=== PATIENT | male | born 1965 | race African-American/Black ===

== ENCOUNTER 2017-10-08 20:02 | Observation (INO) ==
[2017-10-08 21:23] LABS: Bilirubin,Urine Negative (Negative); Blood,Urine Small (Negative); Clarity,Urine Clear (Clear); Color,Urine Yellow (Yellow); Glucose,Urine (UA) Normal (Normal); Ketones,Urine 40 mg/dL (Negative); Leukocyte Esterase,Urine Negative (Negative); Nitrite,Urine Negative (Negative); PH,Urine 6.5 pH Units (5.0-8.0); Protein,Urine Negative (Neg-Trace); Specific Gravity,Urine 1.025 (1.010-1.025); Urobilinogen,Urine Normal (Normal)
[2017-10-08 21:30] LABS: Basophils % 0.2 %; Eosinophils % 0.1 %; Hemoglobin 15.4 g/dL (12.9-16.9); Immature Granulocytes % 0.4 % (0-4); Lymphocytes % 8.3 %; Mean Corpuscular Hemoglobin 32.4 pg (28.0-33.3); Mean Corpuscular Volume 92.6 fL (83.0-100.0); Mean Platelet Volume 8.6 fL (9.4-12.4); Monocytes # 0.6 K/mcL (0.0-1.3); Monocytes % 4.8 %; Neutrophils # 10.7 K/mcL (1.6-8.9); Platelet Count 217 K/mcL (140-400); Red Blood Count 4.75 M/mcL (4.19-5.50); Red Cell Distribution Width 12.8 % (11.5-14.5); Segmented Neutrophils % 86.2 %
[2017-10-08 21:35] LABS: WBC,Urine 0-3 per hpf (0-3)
[2017-10-08 21:36] LABS: Bacteria,Urine Few per hpf (None-Few); Hyaline Casts,Urine None Seen per lpf (None-Few); Squamous Epithelial Cell,Urine Few per lpf (None-Few)
[2017-10-08 21:47] LABS: Alanine Aminotransferase 32 Units/L (7-52); Albumin 4.4 g/dL (3.5-5.7); Alkaline Phosphatase 68 Units/L (34-104); Aspartate Amino Transferase 25 Units/L (13-39); BUN/Creatinine Ratio 16 (6-26); Bilirubin,Direct 0.2 mg/dL (0.0-0.2); Bilirubin,Indirect 0.8 mg/dL (0.0-1.2); Blood Urea Nitrogen 15 mg/dL (6-20); Calcium 9.1 mg/dL (8.6-10.3); Carbon Dioxide 28 mEq/L (23-29); Chloride 102 mEq/L (98-107); Globulin 2.2 g/dL (2.4-3.5); Glucose 110 mg/dL (70-105); Lipase 30 Units/L (11-82); Osmolality,Calculated 283 (280-300); Potassium 4.2 mEq/L (3.5-5.1); Sodium 136 mEq/L (136-145); Total Protein 6.6 g/dL (6.4-8.9); eGFR For African Americans > 60 (> 60); eGFR For Non-African Americans > 60 (> 60)
[2017-10-08] MEDS ORDERED: 0.9 % Sodium Chloride 1,000 ML IVC ONE (22:39)
--- NOTE | 2017-10-08 23:01 | Emergency Department Note ---
Disposition Clinical Impression: Acute appendicitis Qualifiers: Acute appendicitis type: unspecified acute appendicitis type Qualified Code(s) : K35.80 - Unspecified acute appendicitis Disposition: Admitted As Inpatient Condition: Fair Abdominal Pain HPI - General Chief Complaint: ED Abdominal Pain Stated Complaint: abdominal pain Time Seen by Provider: 10/08/17 22:07 Source: patient Mode of arrival: private vehicle Limitations: no limitations Nursing Notes Reviewed: Yes Vital Signs Reviewed: Yes - History of Present Illness HPI Narrative: 51-year-old male with a history of hypertension presents to the emergency department for evaluation of abdominal pain since 6 AM this morning. Patient states abdominal pain is around the umbilicus and right side and can be described as sharp and all as well as cramping at times. Patient states the pain is hard to explain visits a little mixture of everything. Patient states nothing makes the pain better, nothing has made the pain worse. This pain is constant with intermittent worsening. Patient denies recent illness, fever, chills, shortness of breath, dyspnea, chest pain, palpitations, edema, nausea, vomiting, cough patient, diarrhea. He states he had 2 large bowel movements today and this did not assist with the pain. Bowel movements were of normal texture but were larger amount. He states he typically goes every other day. He denies issues with urination, blood in urine, prostate issues. 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 He has been doing this for about a month. Pt Subjective Complaint: abdominal pain Onset (ago): hour(s) Consistency: constant, intermittent, Worsening Location: periumbilical, RLQ Pain Severity: moderate, severe Pain Scale: 8 Quality: cramping, stabbing, aching, sharp, dull, cannot describe Radiation: RLQ Improves with: nothing Worsens with: nothing Associated symptoms: Reports: denies other symptoms Treatments prior to arrival: none - Related Data Allergies Allergy/AdvReac Type Severity Reaction Status Date / Time lisinopril Allergy Cough Verified 12/06/16 08:21 All systems ED: reviewed and negative except as stated. Review of Systems: As Per HPI Abdominal Pain PMH - Past Medical History Medical history: Reports: hyperlipidemia, hypertension Psychiatric history: Reports: no psych history - Social History Smoking status: Never smoker Alcohol use: Reports: occasionally Drug use: Reports: none Physical Exam - General Limitations: no limitations General appearance: alert, in no apparent distress - Head Head exam: atraumatic, normocephalic, normal inspection - Eye Eye exam: Present: normal appearance, PERRL, EOMI - ENT ENT exam: mucous membranes moist - Neck Neck exam: Present: normal inspection, full ROM, trachea midline - Chest Chest inspection: Present: normal inspection, symmetric chest wall rise - Respiratory Respiratory exam: Present: normal lung sounds bilaterally - Cardiovascular Cardiovascular exam: Present: regular rate, normal rhythm, normal heart sounds - Abdominal Exam Abdominal exam: Present: soft, tenderness, diminished bowel sounds, psoas sign, tenderness at McBurney's Point. Absent: distention, guarding, rebound, rigidity , organomegaly, trauma, incision, mass, bruit, hernia Abdominal tenderness: Present: RLQ - Back Exam Back exam: Present: normal inspection, full ROM. Absent: tenderness, CVA tenderness (R), CVA tenderness (L) - Neurological Exam Neurological exam: Present: alert, oriented X3, CN II-XII intact, normal gait - Psychiatric Psychiatric exam: Present: normal affect, normal mood - Skin Skin exam: Present: warm, dry, intact, normal color Course Course Narrative: Well-appearing, hydrated male in no apparent distress. Sitting on side of bed with easy and even respirations. Abdominal exam reveals + tenderness McBurney's point, + Psoas sign. No guarding, rigidity, distention, ascites, hernias palpated. Pain with palpation to the right lower quadrant with pain also at the border the right inguinal area. Concern for appendicitis, inguinal hernia, or other surgical emergency. We will obtain basic labs, CT, and reevaluate. We will treat pain. - Reevaluation(s) Reevaluation #1: CT of the abdomen reveals mild appendicitis. Appendix with a fecalith, 13 mm with fluid surrounding it. Spoke with surgeon Dr. Monroe recommended antibiotics , admission to surgical services for appendectomy in the a.m. Spoke with patient and family verbalized understanding. Admission pending to surgical services. We will continue treatment pain, nausea or patient is here. Time: 01:00 Vital Signs Temperature 99.2 F 10/08/17 20:13 Pulse Rate 67 10/08/17 20:13 Respiratory Rate 18 10/08/17 20:13 Blood Pressure 149/85 10/08/17 20:13 O2 Sat by Pulse Oximetry 96 10/08/17 20:13 Temperature 98.1 F 10/09/17 02:01 Pulse Rate 65 10/09/17 02:01 Respiratory Rate 15 10/09/17 02:01 Blood Pressure 135/82 10/09/17 02:01 O2 Sat by Pulse Oximetry 96 10/09/17 02:01 Oxygen Delivery Oxygen Delivery Room Air Abdominal Pain - Differential Diagnosis Differential Diagnosis: Likely: abdominal pain non-specific, AAA, acute appendicitis, calculus of kidney, colonic obstruction, hernia, small bowel obstruction. Unlikely: abdominal pain mimics ectopic , constipation, ischemic bowel, , pancreatitis - Lab Data Lab results reviewed: Yes I reviewed the patient's lab results. Result diagrams: 10/08/17 21:09 10/08/17 21:09 Lab Results 10/08/17 10/08/17 10/08/17 Range/Units 21:08 21:09 21:09 WBC 12.4 H (4.3-11.1) K/mcL RBC 4.75 (4.19-5.50) M/mcL Hgb 15.4 (12.9-16.9) g/dL Hct 44.0 (37.5-50.1) % MCV 92.6 (83.0-100.0) fL MCH 32.4 (28.0-33.3) pg MCHC 35.0 (31.6-35.5) g/dL RDW 12.8 (11.5-14.5) % Plt Count 217 (140-400) K/mcL MPV 8.6 L (9.4-12.4) fL Immature Gran % 0.4 (0-4) % Seg Neutrophils % 86.2 % Lymphocytes % 8.3 % Monocytes % 4.8 % Eosinophils % 0.1 % Basophils % 0.2 % Neutrophils # 10.7 H (1.6-8.9) K/mcL Lymphocytes # 1.0 (0.6-4.6) K/mcL Monocytes # 0.6 (0.0-1.3) K/mcL Eosinophils # 0.0 (0.0-0.6) K/mcL Basophils # 0.0 (0.0-0.2) K/mcL PT (9.4-12.1) Seconds INR APTT (26.0-36.0) Seconds Sodium 136 (136-145) mEq/L Potassium 4.2 (3.5-5.1) mEq/L Chloride 102 (98-107) mEq/L Carbon Dioxide 28 (23-29) mEq/L BUN 15 (6-20) mg/dL Creatinine 0.91 (0.70-1.30) mg/dL Est GFR ( Amer) > 60 (> 60) Est GFR (Non-Af Amer) > 60 (> 60) BUN/Creatinine Ratio 16 (6-26) Glucose 110 H (70-105) mg/dL Calculated Osmolality 283 (280-300) Lactic Acid (0.5-2.2) mmol/L Calcium 9.1 (8.6-10.3) mg/dL Total Bilirubin 1.0 (0.3-1.0) mg/dL Direct Bilirubin 0.2 (0.0-0.2) mg/dL Indirect Bilirubin 0.8 (0.0-1.2) mg/dL AST 25 (13-39) Units/L ALT 32 (7-52) Units/L Alkaline Phosphatase 68 (34-104) Units/L Serum Total Protein 6.6 (6.4-8.9) g/dL Albumin 4.4 (3.5-5.7) g/dL Globulin 2.2 L (2.4-3.5) g/dL Albumin/Globulin Ratio 2.0 (1.1-2.2) Lipase 30 (11-82) Units/L Urine Color Yellow (Yellow) Urine Clarity Clear (Clear) Urine pH 6.5 (5.0-8.0) pH Units Ur Specific [place] 1.025 (1.010-1.025) Urine Protein Negative (Neg-Trace) mg/dL Urine Glucose (UA) Normal (Normal) mg/dL Urine Ketones 40 H (Negative) mg/dL Urine Blood Small H (Negative) Urine Nitrite Negative (Negative) Urine Bilirubin Negative (Negative) Urine Urobilinogen Normal (Normal) mg/dL Ur Leukocyte Esterase Negative (Negative) Urine Microscopic RBC 5-15 H (0-3) per hpf Urine Microscopic WBC 0-3 (0-3) per hpf Ur Squamous Epith Cells Few (None-Few) per lpf Urine Bacteria Few (None-Few) per hpf Hyaline Casts None Seen (None-Few) per lpf Ur Culture Indicated? NO (NO) 10/08/17 10/08/17 10/08/17 Range/Units 22:58 22:58 22:58 WBC (4.3-11.1) K/mcL RBC (4.19-5.50) M/mcL Hgb (12.9-16.9) g/dL Hct (37.5-50.1) % MCV (83.0-100.0) fL MCH (28.0-33.3) pg MCHC (31.6-35.5) g/dL RDW (11.5-14.5) % Plt Count (140-400) K/mcL MPV (9.4-12.4) fL Immature Gran % (0-4) % Seg Neutrophils % % Lymphocytes % % Monocytes % % Eosinophils % % Basophils % % Neutrophils # (1.6-8.9) K/mcL Lymphocytes # (0.6-4.6) K/mcL Monocytes # (0.0-1.3) K/mcL Eosinophils # (0.0-0.6) K/mcL Basophils # (0.0-0.2) K/mcL PT 10.9 (9.4-12.1) Seconds INR 1.0 APTT 26.6 (26.0-36.0) Seconds Sodium (136-145) mEq/L Potassium (3.5-5.1) mEq/L Chloride (98-107) mEq/L Carbon Dioxide (23-29) mEq/L BUN (6-20) mg/dL Creatinine (0.70-1.30) mg/dL Est GFR ( Amer) (> 60) Est GFR (Non-Af Amer) (> 60) BUN/Creatinine Ratio (6-26) Glucose (70-105) mg/dL Calculated Osmolality (280-300) Lactic Acid 0.8 (0.5-2.2) mmol/L Calcium (8.6-10.3) mg/dL Total Bilirubin (0.3-1.0) mg/dL Direct Bilirubin (0.0-0.2) mg/dL Indirect Bilirubin (0.0-1.2) mg/dL AST (13-39) Units/L ALT (7-52) Units/L Alkaline Phosphatase (34-104) Units/L Serum Total Protein (6.4-8.9) g/dL Albumin (3.5-5.7) g/dL Globulin (2.4-3.5) g/dL Albumin/Globulin Ratio (1.1-2.2) Lipase (11-82) Units/L Urine Color (Yellow) Urine Clarity (Clear) Urine pH (5.0-8.0) pH Units Ur Specific [place] (1.010-1.025) Urine Protein (Neg-Trace) mg/dL Urine Glucose (UA) (Normal) mg/dL Urine Ketones (Negative) mg/dL Urine Blood (Negative) Urine Nitrite (Negative) Urine Bilirubin (Negative) Urine Urobilinogen (Normal) mg/dL Ur Leukocyte Esterase (Negative) Urine Microscopic RBC (0-3) per hpf Urine Microscopic WBC (0-3) per hpf Ur Squamous Epith Cells (None-Few) per lpf Urine Bacteria (None-Few) per hpf Hyaline Casts (None-Few) per lpf Ur Culture Indicated? (NO) - Radiology Data Radiology results reviewed: Yes I reviewed the patient's radiology results. Abdomen/Pelvis CT 10/08/17 22:34 IMPRESSION: Findings most compatible with mild appendicitis. The appendix is dilated to 13 mm with mild wall thickening and trace surrounding fluid. There is also a fecalith at the base of the appendix. Trace additional fluid within the deep pelvis in the rectovesical space. There is otherwise no evidence of rupture, including no free intraperitoneal air or abscess. D/ / 10/08/2017 23:27:17 Yung Meyers MD / naveen Interpreting Provider: Yung Meyers MD
[2017-10-08] MEDS ORDERED: Ketorolac 30 MG/ML VIAL IM ONE (23:02)
[2017-10-08 23:15] LABS: Prothrombin Time 10.9 Seconds (9.4-12.1)
[2017-10-09] MEDS ORDERED: cefOXitin 2,000 MG in D5% in Water (Mini-Bag+) 100 ML IVPB ONE (00:54)
[2017-10-09] MEDS ORDERED: *HR* FentaNYL (PF) 100 MCG/2 ML VIAL IVP ONE (00:56)
[2017-10-09] MEDS ORDERED: WATER IVPB ONE (01:15)
[2017-10-09] MEDS ORDERED: CEFOXITIN IVPB ONE (01:15)
[2017-10-09] MEDS ORDERED: D5 IVPB ONE (01:15)
--- NOTE | 2017-10-09 01:18 | Emergency Department Note ---
Disposition Clinical Impression: Acute appendicitis Qualifiers: Acute appendicitis type: unspecified acute appendicitis type Qualified Code(s) : K35.80 - Unspecified acute appendicitis Disposition: Admitted As Inpatient Condition: Fair General Adult HPI - General Chief complaint: ED Abdominal Pain Stated complaint: abdominal pain Time Seen by Provider: 10/08/17 22:07 Source: patient Mode of arrival: private vehicle Limitations: no limitations Nursing Notes Reviewed: Yes Vital Signs Reviewed: Yes - History of Present Illness Pain Scale: 8 - Related Data Allergies Allergy/AdvReac Type Severity Reaction Status Date / Time lisinopril Allergy Cough Verified 12/06/16 08:21 Past Medical History - Past Medical History Medical history: Reports: hyperlipidemia, hypertension Surgical history: Reports: LE stent(s) Psychiatric history: Reports: no psych history - Social History Smoking Status: Never smoker Smokeless Tobacco Status: No Alcohol use: Reports: occasionally Drug use: Reports: none Physical Exam - General Limitations: no limitations General appearance: alert, in no apparent distress Course Vital Signs Temperature 99.2 F 10/08/17 20:13 Pulse Rate 67 10/08/17 20:13 Respiratory Rate 18 10/08/17 20:13 Blood Pressure 149/85 10/08/17 20:13 O2 Sat by Pulse Oximetry 96 10/08/17 20:13 Temperature 98.1 F 10/09/17 02:01 Pulse Rate 65 10/09/17 02:01 Respiratory Rate 15 10/09/17 02:01 Blood Pressure 135/82 10/09/17 02:01 O2 Sat by Pulse Oximetry 96 10/09/17 02:01 Oxygen Delivery Oxygen Delivery Room Air Medical Decision Making - Lab Data Result diagrams: 10/08/17 21:09 10/08/17 21:09 Lab Results 10/08/17 10/08/17 10/08/17 Range/Units 21:08 21:09 21:09 WBC 12.4 H (4.3-11.1) K/mcL RBC 4.75 (4.19-5.50) M/mcL Hgb 15.4 (12.9-16.9) g/dL Hct 44.0 (37.5-50.1) % MCV 92.6 (83.0-100.0) fL MCH 32.4 (28.0-33.3) pg MCHC 35.0 (31.6-35.5) g/dL RDW 12.8 (11.5-14.5) % Plt Count 217 (140-400) K/mcL MPV 8.6 L (9.4-12.4) fL Immature Gran % 0.4 (0-4) % Seg Neutrophils % 86.2 % Lymphocytes % 8.3 % Monocytes % 4.8 % Eosinophils % 0.1 % Basophils % 0.2 % Neutrophils # 10.7 H (1.6-8.9) K/mcL Lymphocytes # 1.0 (0.6-4.6) K/mcL Monocytes # 0.6 (0.0-1.3) K/mcL Eosinophils # 0.0 (0.0-0.6) K/mcL Basophils # 0.0 (0.0-0.2) K/mcL PT (9.4-12.1) Seconds INR APTT (26.0-36.0) Seconds Sodium 136 (136-145) mEq/L Potassium 4.2 (3.5-5.1) mEq/L Chloride 102 (98-107) mEq/L Carbon Dioxide 28 (23-29) mEq/L BUN 15 (6-20) mg/dL Creatinine 0.91 (0.70-1.30) mg/dL Est GFR ( Amer) > 60 (> 60) Est GFR (Non-Af Amer) > 60 (> 60) BUN/Creatinine Ratio 16 (6-26) Glucose 110 H (70-105) mg/dL Calculated Osmolality 283 (280-300) Lactic Acid (0.5-2.2) mmol/L Calcium 9.1 (8.6-10.3) mg/dL Total Bilirubin 1.0 (0.3-1.0) mg/dL Direct Bilirubin 0.2 (0.0-0.2) mg/dL Indirect Bilirubin 0.8 (0.0-1.2) mg/dL AST 25 (13-39) Units/L ALT 32 (7-52) Units/L Alkaline Phosphatase 68 (34-104) Units/L Serum Total Protein 6.6 (6.4-8.9) g/dL Albumin 4.4 (3.5-5.7) g/dL Globulin 2.2 L (2.4-3.5) g/dL Albumin/Globulin Ratio 2.0 (1.1-2.2) Lipase 30 (11-82) Units/L Urine Color Yellow (Yellow) Urine Clarity Clear (Clear) Urine pH 6.5 (5.0-8.0) pH Units Ur Specific [place] 1.025 (1.010-1.025) Urine Protein Negative (Neg-Trace) mg/dL Urine Glucose (UA) Normal (Normal) mg/dL Urine Ketones 40 H (Negative) mg/dL Urine Blood Small H (Negative) Urine Nitrite Negative (Negative) Urine Bilirubin Negative (Negative) Urine Urobilinogen Normal (Normal) mg/dL Ur Leukocyte Esterase Negative (Negative) Urine Microscopic RBC 5-15 H (0-3) per hpf Urine Microscopic WBC 0-3 (0-3) per hpf Ur Squamous Epith Cells Few (None-Few) per lpf Urine Bacteria Few (None-Few) per hpf Hyaline Casts None Seen (None-Few) per lpf Ur Culture Indicated? NO (NO) 10/08/17 10/08/17 10/08/17 Range/Units 22:58 22:58 22:58 WBC (4.3-11.1) K/mcL RBC (4.19-5.50) M/mcL Hgb (12.9-16.9) g/dL Hct (37.5-50.1) % MCV (83.0-100.0) fL MCH (28.0-33.3) pg MCHC (31.6-35.5) g/dL RDW (11.5-14.5) % Plt Count (140-400) K/mcL MPV (9.4-12.4) fL Immature Gran % (0-4) % Seg Neutrophils % % Lymphocytes % % Monocytes % % Eosinophils % % Basophils % % Neutrophils # (1.6-8.9) K/mcL Lymphocytes # (0.6-4.6) K/mcL Monocytes # (0.0-1.3) K/mcL Eosinophils # (0.0-0.6) K/mcL Basophils # (0.0-0.2) K/mcL PT 10.9 (9.4-12.1) Seconds INR 1.0 APTT 26.6 (26.0-36.0) Seconds Sodium (136-145) mEq/L Potassium (3.5-5.1) mEq/L Chloride (98-107) mEq/L Carbon Dioxide (23-29) mEq/L BUN (6-20) mg/dL Creatinine (0.70-1.30) mg/dL Est GFR ( Amer) (> 60) Est GFR (Non-Af Amer) (> 60) BUN/Creatinine Ratio (6-26) Glucose (70-105) mg/dL Calculated Osmolality (280-300) Lactic Acid 0.8 (0.5-2.2) mmol/L Calcium (8.6-10.3) mg/dL Total Bilirubin (0.3-1.0) mg/dL Direct Bilirubin (0.0-0.2) mg/dL Indirect Bilirubin (0.0-1.2) mg/dL AST (13-39) Units/L ALT (7-52) Units/L Alkaline Phosphatase (34-104) Units/L Serum Total Protein (6.4-8.9) g/dL Albumin (3.5-5.7) g/dL Globulin (2.4-3.5) g/dL Albumin/Globulin Ratio (1.1-2.2) Lipase (11-82) Units/L Urine Color (Yellow) Urine Clarity (Clear) Urine pH (5.0-8.0) pH Units Ur Specific [place] (1.010-1.025) Urine Protein (Neg-Trace) mg/dL Urine Glucose (UA) (Normal) mg/dL Urine Ketones (Negative) mg/dL Urine Blood (Negative) Urine Nitrite (Negative) Urine Bilirubin (Negative) Urine Urobilinogen (Normal) mg/dL Ur Leukocyte Esterase (Negative) Urine Microscopic RBC (0-3) per hpf Urine Microscopic WBC (0-3) per hpf Ur Squamous Epith Cells (None-Few) per lpf Urine Bacteria (None-Few) per hpf Hyaline Casts (None-Few) per lpf Ur Culture Indicated? (NO) Attestation Statement - Attestation Attestation: I, Paolo Wesley MD, personally evaluated this patient and discussed their management with the midlevel provicer, PAC/DENTAL OFFICE ASSISTANT. I reviewed the midlevel provider 's note and agree with the documented findings, medical decision making, and plan of care. 51-year-old male presents to the emergency department with a complaint of right lower quadrant abdominal pain which started about 6 AM this morning and has progressed all day. He complains of anorexia. Nausea but no vomiting. No fever. On examination patient is a well-developed well-nourished well-appearing male in no acute distress. He is alert and oriented 3. There is no cyanosis or diaphoresis. Breath sounds are clear and equal bilaterally. Heart regular rate and rhythm. Abdomen is soft with increased bowel sounds. There is moderate right lower quadrant tenderness with guarding. No rebound tenderness. Labs reviewed. CT the abdomen and pelvis consistent with acute appendicitis. The surgeon plc controls engineer, Dr. Monroe, was consulted and accepted admission of the patient to his service.
[2017-10-09] MEDS ORDERED: Ondansetron 4 MG/2 ML VIAL IVP PRN (02:02)
[2017-10-09] MEDS ORDERED: Morphine Oral CONC 5 MG/0.25 ML ORAL.SYG PO PRN (02:04)
[2017-10-09] MEDS ORDERED: 0.9 % Sodium Chloride 1,000 ML IVC SCH ×2 (02:15→09:49)
[2017-10-09] MEDS ORDERED: MORPHINE SUL Oral CONC 10 MG/0.5 ML ORAL.SYG PO PRN (02:45)
--- NOTE | 2017-10-09 09:19 | General Surg History&Physical ---
Date of Encounter: 10/09/17 Time of Encounter: 09:17 Assessment and Plan (1) Acute appendicitis Current Visit: Yes Status: Acute The assessment and plan as outlined above was discussed with the patient and/or family members who expressed understanding and agreement. All questions were answered. HPI, A/P are consistent with acute appendicitis. He has recommended to undergo a laparoscopic appendectomy. Recommendations, risks, and benefits were reviewed with patient and he is agreeable to proceed. A signed copy of his consent is placed on the hard chart. Plan: surgical intervention in the next 24 to 48 hours NPO supportive care and discomfort management incentive spirometry EPCDs while in bed ambulate as tolerated continue IV antibiotics Qualifiers: Acute appendicitis type: unspecified acute appendicitis type Qualified Code (s): K35.80 - Unspecified acute appendicitis (2) Essential hypertension Current Visit: Yes Status: Chronic Currently well controlled. Continue home meds History of Present Illness Chief complaint: Right lower quadrant pain HPI: Mr. Posada is a 51 year old male who presented on 10/08/2017 with complaints of sudden onset of abdominal discomfort around the belly button which localized to the right and has remained in the right lower quadrant. He states the discomfort will come up at approximately 0 600 on 10/08/2017 with moderate achiness around the belly button. It was constant and had no aggravating or alleviating factors. The discomfort migrated to the right lower quadrant and is now aggravated by motion or trying to get out of bed. He rates the discomfort as a 5 out of 10. He states that is not improved since being on antibiotics but pain medication as controlling it. He denies fevers but reports chills, denies chest pain, shortness of breath, changes in bowel habits , constipation, diarrhea, black, bloody, or tarry stool, generalized weakness, or urinary signs or symptoms. He reports continued feelings of lack of appetite. Mr. Posada endorses a past medical history of well controlled hypertension and hyperlipidemia. He denies a surgical history. He denies a smoking or drug history. He occasionally drinks alcohol and social situations. Past Med Surg Social Fam HX - Past Medical History Source: patient Medical history: hyperlipidemia, hypertension Psychiatric history: no psych history - Past Surgical History Surgical History: no surgical history, LE stent(s) - Social History Smoking Status: Never smoker Smokeless Tobacco Status: No Alcohol use: occasionally Drug use: none Occupational status: employed Current living situation: Home - Independent Activity Level: Independent ambulation - Family History Father History Unknown: Yes Name: Marin Posada Age: 76 Mother History Unknown: Yes Name: Aarti Posada Family Member Ethnicity: Non- Living Status: Still Living Age at : 75 Hx Family Endocrine Disorder: Yes (Diabetic) Medications and Allergies Atorvastatin Calcium [Lipitor] 80 mg PO HS 10/09/17 [History] Clopidogrel [Plavix] 75 mg PO DAILY 10/09/17 [History] Losartan [Cozaar] 25 mg PO BID 10/09/17 [History] Metoprolol Succinate [Toprol Xl] 12.5 mg PO BID 10/09/17 [History] Niacin [Niaspan] 1,000 mg PO DAILY 10/09/17 [History] [place]-3/Dha/Epa/Fish Oil [Fish Oil 1,000 mg Softgel] 1,000 mg PO DAILY 10/09/17 [History] 3 Allergy/AdvReac Type Severity Reaction Status Date / Time lisinopril Allergy Cough Verified 10/09/17 09:00 Review of Systems All systems PM: reviewed and no additional remarkable complaints except as stated All systems PM: The remainder of the systems were reviewed and are negative General Surgery Exam Initial Vital Signs Temp Pulse Resp BP Pulse Ox 99.2 F 67 18 149/85 96 10/08/17 20:13 10/08/17 20:13 10/08/17 20:13 10/08/17 20:13 10/08/17 20:13 VITAL SIGNS: Reviewed. See [facility] GENERAL: In no apparent distress. HEENT: Normocephalic, atraumatic, pupils are equal and reactive, extraocular motions intact, oropharynx is pink and moist, there is no neck adenopathy or JVD noted. CHEST/RESPIRATORY: The thorax is free from signs of trauma. Lung sounds: clear to auscultation, normal respiratory effort CARDIAC: Rular rate and rhythm. Normal S1 and S2, without murmurs, gallops, or rubs. VASCULAR: No Edema. 2+ peripheral pulses. ABDOMEN: soft, hypoactive bowel sounds, positive McBurney's point, negative obturator and so asked signs MUSCULOSKELETAL: Good range of motion of all major joints. Extremities without clubbing, cyanosis or edema. NEUROLOGIC EXAM: Alert and oriented x 3. Speech normal. Follows commands. PSYCHIATRIC: Mood normal. SKIN: No rash or lesions. Results - Labs 10/08/17 21:09 10/08/17 21:09 Abnormal lab results WBC 12.4 K/mcL (4.3-11.1) H 10/08/17 21:09 MPV 8.6 fL (9.4-12.4) L 10/08/17 21:09 Neutrophils # 10.7 K/mcL (1.6-8.9) H 10/08/17 21:09 Glucose 110 mg/dL (70-105) H 10/08/17 21:09 Globulin 2.2 g/dL (2.4-3.5) L 10/08/17 21:09 Urine Ketones 40 mg/dL (Negative) H 10/08/17 21:08 Urine Blood Small (Negative) H 10/08/17 21:08 Urine Microscopic RBC 5-15 per hpf (0-3) H 10/08/17 21:08 All other labs normal. - Imaging CT scan - abdomen: report reviewed CT scan - pelvis: report reviewed
[2017-10-09] MEDS ORDERED: Pantoprazole 40 MG VIAL IVP SCH (09:45)
[2017-10-09] MEDS ORDERED: *HR* Metoprolol 5 MG/5 ML VIAL IVP PRN (09:45)
[2017-10-09] MEDS ORDERED: *HR* Promethazine 25 MG/ML VIAL IVP PRN ×2 (09:45→11:41)
--- NOTE | 2017-10-09 10:01 | Anesthesia Evaluation PreOp ---
Date of Encounter: 10/09/17 Time of Encounter: 10:18 - Past History Planned Operation: Laparoscopic appendectomy Cardiac History: PA (2007), HTN, Hyperlipidemia, Cardiac Stent ([facility] 2007) Pulmonary History: Denies Any Significant HX [employer] History: Denies Any Significant HX Other Medical History: Denies Any Significant HX Alcohol Use: occasionally Drug use: none Medications and Allergies Atorvastatin Calcium [Lipitor] 80 mg PO HS 10/09/17 [History] Clopidogrel [Plavix] 75 mg PO DAILY 10/09/17 [History] Losartan [Cozaar] 25 mg PO BID 10/09/17 [History] Metoprolol Succinate [Toprol Xl] 12.5 mg PO BID 10/09/17 [History] Niacin [Niaspan] 1,000 mg PO DAILY 10/09/17 [History] [place]-3/Dha/Epa/Fish Oil [Fish Oil 1,000 mg Softgel] 1,000 mg PO DAILY 10/09/17 [History] 3 Allergy/AdvReac Type Severity Reaction Status Date / Time lisinopril Allergy Cough Verified 10/09/17 09:00 - Meds/Allergy Pre-op Review Medications Reviewed: Yes (Patient has not had any home meds for the last 48 hrs ) Allergies Reviewed: Yes Beta Blockers on Current Med List: Yes Anesthesia Results - Labs 10/08/17 21:09 10/08/17 21:09 Laboratory Tests 10/08/17 21:09 Total Bilirubin 1.0 Direct Bilirubin 0.2 AST 25 ALT 32 Alkaline Phosphatase 68 Serum Total Protein 6.6 Albumin 4.4 - Imaging Additional studies: Stress Test 12/2016: Perfusion imaging was negative for ischemia or infarct. Exercise ECG was negative for ischemia. Exercise capacity was excellent. Normal hemodynamic response. Patient had no chest pain with stress. Gated EF = 61%. Anesthesia Exam O2 Sat Height 1.78 m Weight 83.915 kg BMI 27 Vital Signs/O2 Sat/Glucose, Most Recent Temp Pulse Resp BP Pulse Ox 97.7 F 57 18 136/81 96 10/09/17 06:35 10/09/17 06:35 10/09/17 06:35 10/09/17 06:35 10/09/17 06:35 Blood Glucose* 95 NPO (# of Hours): >8 - HEENT Mallampati: I Teeth: Normal Oral Opening: Greater than 3 - Cardiac Rhythm: Regular - Pulmonary Breath Sounds: bilateral Clear Anesthesia Assess/Plan ASA Score: 2, E Modified Althea Scale for Level of Consciousness: Cooperative, oriented, and tranquil Anesthetic Plan: General Monitoring Plan: Standard Monitors Recovery Plan: PACU Anes Supervising Prov Stmt: Patient informed and consented. Risks, benefits, and alternatives discussed. Patient wishes to proceed.
[2017-10-09] MEDS ORDERED: *HR* Succinylcholine 200 MG/10 ML VIAL IVP ONE (10:26)
[2017-10-09] MEDS ORDERED: Lidocaine -MPF 2% 2 ML VIAL ONE (10:26)
[2017-10-09] MEDS ORDERED: *HR* Propofol 200 MG/20 ML VIAL IVP ONE (10:26)
[2017-10-09] MEDS ORDERED: *HR* FentaNYL (PF) 100 MCG/2 ML VIAL ONE (10:26)
[2017-10-09] MEDS ORDERED: *HR* Midazolam HCl 2 MG/2 ML VIAL ONE (10:26)
[2017-10-09] MEDS ORDERED: *HR* Rocuronium Bromide 50 MG/5 ML VIAL ONE (10:26)
[2017-10-09] MEDS ORDERED: Lidocaine -MPF 4% 5 ML AMPUL ONE (10:26)
[2017-10-09] MEDS ORDERED: Ketorolac 30 MG/ML VIAL ONE (11:39)
[2017-10-09] MEDS ORDERED: Ondansetron 4 MG/2 ML VIAL ONE (11:40)
[2017-10-09] MEDS ORDERED: Dexamethasone 4 MG/ML VIAL ONE (11:40)
[2017-10-09] MEDS ORDERED: *HR* OxyCODONE Immed Rel 5 MG TABLET PO PRN (11:41)
[2017-10-09] MEDS ORDERED: *HR* Meperidine 25 MG/ML SYRINGE IVP PRN (11:41)
[2017-10-09] MEDS ORDERED: Neostigmine Methylsulfate 3 MG/3 ML SYRINGE ONE (11:48)
[2017-10-09] MEDS ORDERED: Ringers Solution, Lactated 1,000 ML ONE (12:13)
[2017-10-09] MEDS ORDERED: Ibuprofen 800 MG TABLET PO ONE (13:33)
[2017-10-09] MEDS ORDERED: *HR* OxyCODONE/APAP 5/325 TABLET PO ONE (13:33)
--- NOTE | 2017-10-09 13:34 | Discharge Summary ---
Orders not resulted at time of discharge: Pending orders 10/09/17 11:43 Surgical Pathology [PTH] Routine Date of Encounter: 10/09/17 Time of Encounter: 13:35 - Discharge Diagnosis (1) Acute appendicitis Priority: Primary Status: Resolved Qualifiers: Acute appendicitis type: unspecified acute appendicitis type Qualified Code (s): K35.80 - Unspecified acute appendicitis (2) Essential hypertension Priority: Secondary Status: Chronic General Surgery Exam Initial Vital Signs Temp Pulse Resp BP Pulse Ox 99.2 F 67 18 149/85 96 10/08/17 20:13 10/08/17 20:13 10/08/17 20:13 10/08/17 20:13 10/08/17 20:13 - Hospital Course Hospital course: Mr. Posada is a 51 year old male who presented on 10/08/2017 with a 12 hour history of abdominal discomfort that started at the umbilicus and radiated and remained in the right lower quadrant. He had a mildly elevated white blood cell count 12.4. He was treated empirically with IV antibiotics and stated it was no improvement in discomfort. He was taken to the operating room on 2017 where he underwent an uncomplicated laparoscopic appendectomy by Dr. Monroe. He is emulating avoiding without difficulty, tolerating a diet without nausea or vomiting, vital signs are stable, afebrile, and his abdominal discomfort is well-controlled. We will begin discharge planning to home with a follow-up in the office on October 24. - Time Spent with Patient Total time spent providing and/or coordinating discharge services: - Discharge Medications Prescriptions: OxyCODONE/APAP 5/325 [Percocet 5/325 MG] 1 each PO Q6HR PRN 7 Days #28 tablet PRN Reason: Pain Docusate [Colace] 100 mg PO BID #30 capsule Ibuprofen 800 mg PO Q8H PRN #30 tablet PRN Reason: Mild Pain Home Medications: Atorvastatin Calcium [Lipitor] 80 mg PO HS 10/09/17 [History] Clopidogrel [Plavix] 75 mg PO DAILY 10/09/17 [History] Docusate [Colace] 100 mg PO BID #30 capsule 10/09/17 [Rx] Ibuprofen 800 mg PO Q8H PRN #30 tablet 10/09/17 [Rx] Losartan [Cozaar] 25 mg PO BID 10/09/17 [History] Metoprolol Succinate [Toprol Xl] 12.5 mg PO BID 10/09/17 [History] Niacin [Niaspan] 1,000 mg PO DAILY 10/09/17 [History] [place]-3/Dha/Epa/Fish Oil [Fish Oil 1,000 mg Softgel] 1,000 mg PO DAILY 10/09/17 [History] OxyCODONE/APAP 5/325 [Percocet 5/325 MG] 1 each PO Q6HR PRN 7 Days #28 tablet [Rx] Allergies/Adverse Reactions: 3 Allergy/AdvReac Type Severity Reaction Status Date / Time lisinopril Allergy Cough Verified 10/09/17 09:00 Date of admission: 10/09/17 01:08 Primary care physician: Sam Holland DO Discharging clinician: Marimar Hardy Anticipated date of discharge: 10/09/17 Labs on day of discharge: Labs from last 24 hours 10/09/17 05:11 POC Glucose 95 - Patient Status Disposition: Home, Self-Care Condition: Fair Functional capacity at discharge: independent ambulation Overall status at discharge: patient is progressing back to baseline - Discharge Instructions Instructions: Laparoscopic Appendectomy (DC) Follow Up With: Sam Holland DO [Primary Care Provider] - Additional Instructions: General Surgical Discharge Instructions 1. No pushing, pulling, or lifting greater than 15 lbs for 2-4 weeks (depending upon procedure). 2. You may shower beginning today, but no tub baths, soaking, or swimming for 2 weeks. 3. You may resume driving when you are off narcotics and are safe to react in a car. 4. Take ibuprofen every 8 hours for discomfort. If this does not relieve discomfort, you may take the as needed Percocet. Take narcotics as directed. Do not take more narcotics then directed and do not share your narcotics with any other person. Do not drink alcohol while on narcotics. 5. Take stool softeners (Colace) or a water based laxative (Miralax) while taking narcotics. You may hold for loose stools. 6. Report any fevers greater than 100.5F, increase abdominal discomfort, drainage that looks like pus, increased redness or pain at the surgical site, or any vomiting. 7. Report any pain in the calves, shortness of breath, or rapid heartbeat. 8. Follow-up in the office as directed. 9. If you were prescribed antibiotics, do not stop them without talking to your provider. - Diet and Activity Activity: increase activity as tolerated Diet: advance to your usual diet
--- NOTE | 2017-10-09 14:46 | Anesthesia Evaluation Post Op ---
Date of Encounter: 10/09/17 Time of Encounter: 12:38 Notes: Patient's vital signs have been reviewed. Patient is stable postoperatively and has adequately recovered from anesthesia. Patient is determined to have stable airway patency and respiratory function including respiratory rate and oxygen saturation. Patient has a stable heart rate, blood pressure and adequate hydration. Patients mental status is acceptable. Patients temperature is appropriate. Pain and nausea are adequately controlled. - Discharge PostOp Status: Transfer Patient to floor
[2017-10-09] MEDS ORDERED: Piperacillin/Tazobactam 3.375 GM in 0.9 % Sodium Chloride Mini Bag 100 ML IVPB SCH (16:00)
[2017-10-09 17:41] VITALS: BP 116/77
--- NOTE | 2017-10-13 13:29 | Operative Note ---
Date of procedure: 10/09/17 Pre-op diagnosis: appendicitis Post-op diagnosis: same Procedure: Laparoscopic Appendectomy Anesthesia: ZEYAD Surgeon: Panda Monroe Was there an care team assistant present: No Estimated blood loss (cc): 10 Specimen: appendix Condition: stable Disposition: same day Procedure in Detail: After informed consent, patient was taken to the operating room placed in supine position. After adequate sedation anesthesia the abdomen was prepped and draped. A 12 mm cannula was placed in the umbilicus. A 5 mm cannulas placed in suprapubic region and the left lower quadrant. Camera was inserted and the abdomen after a pneumoperitoneum. 2 Viv graspers were used to identify the base of the appendix. A appendiceal window was created. A OMAR endoscopic stapler was placed across the base. A vascular load was placed across the mesoappendix. Once the appendix was was placed in an Endobag and removed through the umbilicus. The right lower quadrant was suctioned dry no bleeding was identified. Remainder the pneumoperitoneum was evacuated. The umbilicus was closed with an 0 Vicryl suture in [id number] fashion. Skin was closed with 4-0 Vicryl suture and Dermabond.
== END 2017-10-09 17:57 | disposition home or self-care (01) ==
LOC: EMEROO 20:02 → 3ANU 20:02
PROVIDERS: ADMIT Surgery; ATTEND Surgery